=== PATIENT | female | born 2000 | race Hispanic/Latino ===

== ENCOUNTER 2022-01-21 23:56 | Emergency (ER) | payer MEDICAID ==
[2022-01-22 08:06] VITALS: BP 130/83
[2022-01-22 16:42] LABS: HCG Qualitative,Urine Negative (Negative)
[2022-01-22 16:49] LABS: Mucus,Urine FEW /HPF
[2022-01-22 17:08] LABS: Color,Urine Straw (Yellow)
[2022-01-22 17:09] LABS: Bilirubin,Urine Negative (Negative); Blood,Urine Negative (Negative); PH,Urine 6.5 (5.0-7.0); Protein,Urine <15 mg/dL mg/dL (Negative)
[2022-01-22 17:10] LABS: Urobilinogen,Urine < 2.0 mg/dL (<2.0)
== END 2022-01-22 16:18 | disposition left against medical advice (07) ==
LOC: ED 23:56
DX: R10.9 Unspecified abdominal pain (principal); Z53.21 Procedure and treatment not carried out due to patient leaving prior to being seen by health care provider
CPT/HCPCS: 81001; 81025